=== PATIENT | female | born 1995 | race Caucasian/White ===

== ENCOUNTER 2018-05-12 15:36 | Emergency (ER) | payer SELFPAY ==
[~2018-05-12] VITALS: Ht 160 cm; Wt 62.0 kg
[~2018-05-12 15:36] MED LIST: AMOX500T PO; BENA25TA8 PO; BENZ100 PO; EPIP0.3I IM; FLUT1SPR9; IBUP800T23 PO; IPRA0.03; PRED20 PO
[2018-05-12 15:39] VITALS: BP 125/60; PULSE 86; RESP 16; TEMP 98.3; O2SAT 99
[2018-05-12 16:11] LABS: BILIRUBIN, URINE NEG (NEG); BLOOD, URINE NEG (NEG); GLUCOSE,URINE NEG (NEG); KETONE, URINE NEG (NEG); MUCUS URINE FEW /lpf (OCC); NITRITE,URINE NEG (NEG); SQUAMOUS EPITHELIAL CELL URINE 10 /hpf (0-5); URINE COLOR YELLOW (YELLW/STRAW); URINE LEUKOCYTE ESTERASE LARGE (NEG)
[2018-05-12] MEDS ORDERED: LIDOCAINE HCL 1% 50 ML VIAL IM ONE (17:45)
[2018-05-12] MEDS ORDERED: cefTRIAXone 250 MG VIAL IM ONE (17:45)
[2018-05-12] MEDS ORDERED: AZITHROMYCIN 250 MG TAB PO ONE (17:45)
[2018-05-12] MEDS ORDERED: LIDOCAINE HCL 1% PF 30 ML VIAL ONE (18:12)
[2018-05-12] MEDS ORDERED: CEPH-460 PO (18:37)
--- NOTE | 2018-05-12 18:37 | PD ---
HPI Chief Complaint: Complaint Time Seen by Provider: 16:52 Travel History International Travel<30 days: No Contact w/Intl Traveler<30days: No Traveled to known affect area: No History of Present Illness HPI Patient is a 23-year-old female presenting to emerge from for evaluation of dysuria and vaginal discharge. Patient states her boyfriend of 5 years cheated on her 2 weeks ago. 3 days ago she developed vaginal discharge with a foul odor. She denies any back pain, nausea, abdominal pain, fever, chills. Symptoms are moderate, patient has no other complaints at this time. PFSH Past Medical History Asthma: Yes Diminished Hearing: No Respiratory: Yes (ASTHMA A CHILD) Immunizations Current: Yes ?: Not LMP: BEEN IRREGULAR AFTER IN MARCH Menopausal: No : 2 Para: 0 Miscarriage: 1 : 1 Dilation and Curettage (D&C): Yes (march 2018 ) Past Surgical History Ear Surgery: Yes (TUBES PLACED IN EARS) Tonsillectomy: Yes (ALSO HAD ADENOIDECTOMY) Social History Alcohol Use: Yes (socialy ) Tobacco Use: Yes (2 a day ) Substance Use: No Allergies-Medications (Allergen,Severity, Reaction): Coded Allergies: No Known Allergies (Verified Adverse Reaction, Unknown, 05/12/18) Reported Meds & Prescriptions Reported Meds & Active Scripts Active Ibuprofen 800 Mg Tab 800 Mg PO Q6H PRN Tessalon [place] (Benzonatate) 100 Mg Cap 100 Mg PO TID PRN Ipratropium [place] 0.03 % Spr 2 [place] NA TID PRN Flonase Allergy Relief (Fluticasone Propionate (Nasal)) 50 Mcg/Act Spr 1 [place] NA DAILY PRN Amoxil (Amoxicillin) 500 Mg Cap 500 Mg PO BID 10 Days Benadryl 25 mg tab (Diphenhydramine HCl) 25 Mg Tab 50 Mg PO Q6H PRN Deltasone (Prednisone) 20 Mg Tab 40 Mg PO DAILY 4 Days Epipen 2-Isaiah (Epinephrine) 0.3 Mg Inj 0.3 Mg IM DIRECTED PRN If anaphylactic symptoms persist, dose may be repeated in 5-15 minutes Review of Systems Except as stated in HPI: all other systems reviewed are Neg Genitourinary: Positive: Dysuria, Discharge, No: Pelvic Pain Physical Exam Narrative GENERAL: Well-developed, well-nourished, alert female. Presenting in no acute distress. SKIN: Warm and dry. HEAD: Atraumatic. Normocephalic. EYES: Pupils equal and round. No scleral icterus. No injection or drainage. ENT: No nasal bleeding or discharge. Mucous membranes pink and moist. NECK: Trachea midline. No JVD. CARDIOVASCULAR: Regular rate and rhythm. RESPIRATORY: No accessory muscle use. Clear to auscultation. Breath sounds equal bilaterally. GASTROINTESTINAL: Abdomen soft, non-tender, nondistended. Hepatic and splenic margins not palpable. MUSCULOSKELETAL: Extremities without clubbing, cyanosis, or edema. No obvious deformities. GENITOURINARY: Normal external genitalia without lesions or erythema. Vaginal vault without blood. Thin white drainage. Cervical os was closed without drainage. No cervical motion tenderness. Uterus nontender and nonenlarged. Bilateral adnexa nontender without masses. NEUROLOGICAL: Awake and alert. No obvious cranial nerve deficits. Motor grossly within normal limits. Five out of 5 muscle strength in the arms and legs. Normal speech. PSYCHIATRIC: Appropriate mood and affect; insight and judgment normal. Data Data Last Documented VS Vital Signs Date Time Temp Pulse Resp B/P (MAP) Pulse Ox O2 Delivery O2 Flow Rate FiO2 05/12/18 15:39 98.3 86 16 125/60 (81) 99 Orders Orders Urinalysis - C+S If Indicated (05/12/18 15:43) Urine Culture (05/12/18 15:50) Gc And Chlamydia Pcr (05/12/18 17:45) Wet Prep Profile (05/12/18 17:45) Ceftriaxone Inj (Rocephin Inj) (05/12/18 17:45) Lidocaine 1% Inj (50 Ml) (Xylocaine 1% I (05/12/18 17:45) Azithromycin (Zithromax) (05/12/18 17:45) Lidocaine Pf 1% Inj (Xylocaine-Mpf 1% In (05/12/18 18:12) Labs Laboratory Tests Test 05/12/18 15:50 05/12/18 18:06 Urine Color YELLOW Urine Turbidity HAZY Urine pH 7.0 Urine Specific [place] 1.019 Urine Protein NEG mg/dL Urine Glucose (UA) NEG mg/dL Urine Ketones NEG mg/dL Urine Occult Blood NEG Urine Nitrite NEG Urine Bilirubin NEG Urine Urobilinogen 2.0 mg/dL Urine Leukocyte Esterase LARGE Urine RBC 2 /hpf Urine WBC 12 /hpf Urine Squamous Epithelial Cells 10 /hpf Urine Mucus FEW /lpf Microscopic Urinalysis Comment CULTURE INDICATED Clue Cells (Wet Prep) NONE SEEN Vaginal Trichomonas (Wet Prep) NONE SEEN Vaginal Yeast (Wet Prep) NONE SEEN MDM Medical Decision Making Medical Screen Exam Complete: Yes Emergency Medical Condition: Yes Interpretation(s) Laboratory Tests Test 05/12/18 15:50 05/12/18 18:06 Urine Color YELLOW Urine Turbidity HAZY Urine pH 7.0 Urine Specific [place] 1.019 Urine Protein NEG mg/dL Urine Glucose (UA) NEG mg/dL Urine Ketones NEG mg/dL Urine Occult Blood NEG Urine Nitrite NEG Urine Bilirubin NEG Urine Urobilinogen 2.0 mg/dL Urine Leukocyte Esterase LARGE Urine RBC 2 /hpf Urine WBC 12 /hpf Urine Squamous Epithelial Cells 10 /hpf Urine Mucus FEW /lpf Microscopic Urinalysis Comment CULTURE INDICATED Clue Cells (Wet Prep) NONE SEEN Vaginal Trichomonas (Wet Prep) NONE SEEN Vaginal Yeast (Wet Prep) NONE SEEN Vital Signs Date Time Temp Pulse Resp B/P (MAP) Pulse Ox O2 Delivery O2 Flow Rate FiO2 05/12/18 15:39 98.3 86 16 125/60 (81) 99 Differential Diagnosis UTI versus STD versus bacterial vaginosis versus [place] versus other Narrative Course Patient is well-appearing 23-year-old female presenting with 3 days of dysuria and vaginal discharge. Patient's vital signs are stable. There is no cervical motion tenderness on exam. Urinalysis with 12 white blood cells, large amount of leukocyte esterase, reflex culture is pending. Wet prep is negative. Chlamydia and gonorrhea are pending. Patient was treated empirically. She was advised to avoid sexual contact for at least 1 week. She was advised to avoid contact with her boyfriend until he is tested and/or treated. Patient was encouraged to follow-up with her primary doctor at the [facility] department for further STD screening. She was advised that she will be notified of test results are positive. She was encouraged return to emergency department for any new or worsening symptoms. Patient verbalized understanding of these instructions. Patient stable for discharge. Diagnosis Primary Impression: UTI (urinary tract infection) Qualified Codes: N39.0 - Urinary tract infection, site not specified Additional Impression: Vaginal discharge Referrals: [employer] [facility] Dept. Patient Instructions: General Instructions Additional Instructions: Follow-up at the [facility] department for further STD screening Do not have sexual intercourse for at least 1 week Avoid sexual intercourse for previous partner until he is tested and/or treated You will be notified of test results if they are positive Return to emergency department for any new or worsening symptoms Complete full course of antibiotics as prescribed Med/Other Pt SpecificInfo: Prescription(s) given Scripts Cephalexin (Keflex) 500 Mg Cap 500 MG PO Q12H for Infection for 7 Days, #14 CAP 0 Refills Prov: Margarette Mendez 05/12/18 Disposition: 01 DISCHARGE HOME Condition: Stable Margarette Mendez May 12, 2018 18:37
== END 2018-05-12 18:54 | disposition home or self-care (01) ==
LOC: NEPD 15:36
DX: N39.0 Urinary tract infection, site not specified (principal); N89.8 Other specified noninflammatory disorders of vagina; J45.909 Unspecified asthma, uncomplicated; F17.200 Nicotine dependence, unspecified, uncomplicated; Z79.899 Other long term (current) drug therapy
CPT/HCPCS: 81001; 87086; 87210; 87491; 87591; 96372; 99284; J0696